=== PATIENT | male | born 1955 | race Caucasian/White ===

== ENCOUNTER 2019-02-22 09:42 | Outpatient (REF) | payer BC, SELFPAY ==
[2019-02-22 22:02] LABS: ALT 43 U/L (12-78); AST 42 U/L (15-37); Albumin 4.3 g/dL (3.4-5.0); Alkaline Phosphatase 56 U/L (46-116); Amylase 98 U/L (25-115); Anion Gap 8.6 mmol/L (3-11); BUN 12 mg/dL (7-18); Bilirubin, Total 0.8 mg/dL (0.2-1.0); CO2 29.4 mmol/L (21.0-32.0); CREATININE 0.76 mg/dL (0.70-1.30); Calcium 9.5 mg/dL (8.5-10.1); Chloride 101 mmol/L (98-107); Glucose 79 mg/dL (70-100); Lipase 81 U/L (73-393); Sodium 139 mmol/L (136-145)
[2019-02-22 22:05] LABS: HCT 43.8 % (40.0-50.0); HGB 14.6 g/dL (13.5-17.5); Mean Corp. HGB Concentration 33.3 g/dL (32.0-36.0); Mean Corpuscular Hemoglobin 30.5 pg (27.0-33.0); Mean Corpuscular Volume 91.4 fL (80-95); Mean Platelet Volume 9.7 fL (8.0-11.0); Platelet Count 220 x1000/uL (130-400); RBC 4.79 m/cumm (4.50-6.00); RBC Distribution Width 12.8 % (11.8-14.1); White Blood Cell Count 4.42 k/cumm (4.4-10.8)
[2019-02-22 22:26] LABS: Bilirubin Negative (Negative); Blood Negative (Negative); Clarity Clear; Glucose Negative (Negative); Ketones Negative (Negative); Leukocyte Esterase Negative (Negative); Nitrite Negative (Negative); Specific Gravity <= 1.005 (1.005-1.025); Urobilinogen 0.2 EU/dL (Up TO 0.2)
[2019-02-24 08:47] LABS: PSA, Screening 0.8 ng/ml (0-4.5)
== END 2019-02-22 10:02 ==
LOC: NCHCN 09:42
PROVIDERS: PCP Internal Medicine; Visit Provider Nurse Practitioner Family
DX: R10.11 Right upper quadrant pain (principal); Z12.5 Encounter for screening for malignant neoplasm of prostate; N40.0 Benign prostatic hyperplasia without lower urinary tract symptoms
CPT/HCPCS: 80053; 83690; 84153; 85027; 81003; 82150

== ENCOUNTER 2019-04-17 11:33 | Outpatient (REF) | payer BC, SELFPAY ==
[2019-04-20 14:18] LABS: Helicobacter pylori Ag, Feces Negative (NEGAT)
== END 2019-04-17 11:53 ==
LOC: NCHCN 11:33
PROVIDERS: PCP Internal Medicine; Visit Provider Internal Medicine
DX: R10.11 Right upper quadrant pain (principal)
CPT/HCPCS: 87338

== ENCOUNTER 2023-06-09 08:06 | Outpatient (REF) | payer MEDICARE, SELFPAY ==
[2023-06-10 10:15] LABS: HIV-1/2 Ag & Ab Screen Negative (Negative)
[2023-06-10 11:32] LABS: Syphilis Serology (RPR) Negative (Negative)
[2023-06-10 14:29] LABS: Chlamydia Result Negative (Negative); GC Result Negative (Negative)
== END 2023-06-09 08:07 | disposition home or self-care (01) ==
LOC: NCHCN 08:06
PROVIDERS: PCP Internal Medicine; Visit Provider Internal Medicine
DX: Z11.3 Encounter for screening for infections with a predominantly sexual mode of transmission (principal)
CPT/HCPCS: 87389; 87491; 87591; 86592

== ENCOUNTER 2023-08-09 15:28 | Outpatient (REF) | payer MEDICARE, SELFPAY ==
[2023-08-11 12:05] LABS: HIV-1/2 Ag & Ab Screen Negative (Negative)
== END 2023-08-09 15:29 | disposition home or self-care (01) ==
LOC: NCHCN 15:28
PROVIDERS: PCP Internal Medicine; Visit Provider Internal Medicine
DX: Z11.4 Encounter for screening for human immunodeficiency virus [HIV] (principal)
CPT/HCPCS: 87389

== ENCOUNTER 2023-10-27 16:17 | Outpatient (REF) | payer MEDICARE, SELFPAY ==
[2023-10-27 21:32] LABS: Abs Immature Grans 0.02 10^3/uL (0.0-0.06); Absolute Basophil Count 0.02 10^3/uL (0.0-0.2); Absolute Eosinophil Count 0.17 10^3/uL (0.0-0.7); Absolute Lymphocyte Count 1.07 10^3/uL (1.2-3.4); Absolute Monocyte Count 0.54 10^3/uL (0.1-0.8); Absolute Neutrophil Count 3.78 10^3/uL (1.2-6.7); Basophils % 0.4; HCT 43.3 % (40.0-50.0); HGB 14.7 g/dL (13.5-17.5); Immature Grans % 0.4; Lymphocytes % 19.1; MCH 31.1 pg (27.0-33.0); MCHC 33.9 % (32.0-36.0); MCV 92 fL (80-95); MPV 9.3 fL (8.0-11.0); Monocytes % 9.6; Neutrophils % 67.5; Platelet Count 223 10^3/uL (130-400); RBC 4.72 10^6/uL (4.36-5.78); RDW 12.8 % (11.8-14.1); RDW-SD 43.3 fL
[2023-10-27 22:24] LABS: ALT 36 U/L (16-63); AST 34 U/L (15-37); Alkaline Phosphatase 64 U/L (46-116); Anion Gap 6.5 mmol/L (3-11); BUN 20 mg/dL (7-18); Bilirubin, Total 0.4 mg/dL (0.2-1.0); CO2 30.5 mmol/L (21.0-32.0); CREATININE 0.8 mg/dL (0.70-1.30); Calcium 9.5 mg/dL (8.5-10.1); Chloride 102 mmol/L (98-107); Glucose 105 mg/dL (74-106); Potassium 4.3 mmol/L (3.5-5.1); Sodium 139 mmol/L (136-145); TSH (W/Ref FT4) 1.58 uIU/mL (0.36-3.74); Total Protein 7.4 g/dL (6.4-8.2); Vitamin B12 961 pg/mL (193-986)
== END 2023-10-27 16:18 | disposition home or self-care (01) ==
LOC: NCHCN 16:17
PROVIDERS: PCP Internal Medicine; Visit Provider Internal Medicine
DX: R42 Dizziness and giddiness (principal)
CPT/HCPCS: 80053; 82607; 84443; 85025

== ENCOUNTER 2024-01-07 15:23 | Outpatient (REF) | payer MEDICARE, SELFPAY ==
[2024-01-10 10:29] LABS: Syphilis Serology (RPR) Negative (Negative)
[2024-01-10 10:30] LABS: HIV-1/2 Ag & Ab Screen Negative (Negative)
[2024-01-10 10:35] LABS: Hepatitis C Ab w Rflx HCV PCR Negative (Negative)
[2024-01-10 10:38] LABS: Hep B Core Antibody Negative (Negative)
== END 2024-01-07 15:24 | disposition home or self-care (01) ==
LOC: NCHCN 15:23
PROVIDERS: PCP Internal Medicine; Visit Provider Internal Medicine
DX: Z11.3 Encounter for screening for infections with a predominantly sexual mode of transmission (principal); Z72.51 High risk heterosexual behavior
CPT/HCPCS: 86704; 86803; 87389; 86592

== ENCOUNTER 2024-11-09 08:20 | Outpatient (REF) | payer MEDICARE, SELFPAY ==
[2024-11-09 14:57] LABS: HCT 42.1 % (40.0-50.0); HGB 14.2 g/dL (13.5-17.5); MCH 30.9 pg (27.0-33.0); MCHC 33.7 % (32.0-36.0); MCV 92 fL (80-95); MPV 9.3 fL (8.0-11.0); Platelet Count 198 10^3/uL (130-400); RDW 12.8 % (11.8-14.1); RDW-SD 42.2 fL
[2024-11-09 15:10] LABS: Calculated LDL 74 mg/dL (<100); Cholesterol 165 mg/dL (<200); HDL Cholesterol 86 mg/dL (40-60); Triglyceride 26 mg/dL (<150)
== END 2024-11-09 08:21 | disposition home or self-care (01) ==
LOC: NCHCN 08:20
PROVIDERS: PCP Internal Medicine; Visit Provider Internal Medicine
DX: Z00.00 Encounter for general adult medical examination without abnormal findings (principal)
CPT/HCPCS: 80061; 84153; 85027

== ENCOUNTER 2025-03-26 13:55 | Outpatient (REF) | payer MEDICARE, SELFPAY ==
[2025-03-27 10:14] LABS: IgA 92 mg/dL (85-499); Interpretation (See Note); Tissue Transglutaminase IgA <4.0 CU (<20.0)
== END 2025-03-26 13:56 | disposition home or self-care (01) ==
LOC: NCHCN 13:55
PROVIDERS: PCP Internal Medicine; Visit Provider Internal Medicine
DX: R10.9 Unspecified abdominal pain (principal)
CPT/HCPCS: 82784; 83516

== ENCOUNTER 2025-03-27 15:34 | Outpatient (REF) | payer MEDICARE, SELFPAY ==
[2025-03-30 13:00] LABS: Helicobacter pylori Ag, Feces Negative (Negative)
== END 2025-03-27 15:35 | disposition home or self-care (01) ==
LOC: NCHCN 15:34
PROVIDERS: PCP Internal Medicine; Visit Provider Internal Medicine
DX: R10.9 Unspecified abdominal pain (principal)
CPT/HCPCS: 87338

== ENCOUNTER 2025-04-03 14:46 | Outpatient (REF) | payer MEDICARE, SELFPAY ==
[2025-04-03 16:13] LABS: Bacteria Negative HPF (Negative); C & S Indicated? No; Crystals Negative HPF (Negative); Epithelial Cells Negative HPF (Negative); Mucus Trace (Negative); WBC Negative HPF (0-5)
[2025-04-03 23:02] LABS: PSA, Screening 1.1 ng/mL (<=6.5)
== END 2025-04-03 14:47 | disposition home or self-care (01) ==
LOC: NCHCN 14:46
PROVIDERS: PCP Internal Medicine; Visit Provider Internal Medicine
DX: Z12.5 Encounter for screening for malignant neoplasm of prostate (principal); R39.9 Unspecified symptoms and signs involving the genitourinary system
CPT/HCPCS: 84153; 81015

== ENCOUNTER 2025-07-19 15:22 | Outpatient (REF) | payer MEDICARE, SELFPAY ==
[2025-07-19 20:46] LABS: Estimated GFR 91.88 (mL/min/1.73m2)
== END 2025-07-19 15:23 | disposition home or self-care (01) ==
LOC: LBN 15:22
PROVIDERS: PCP Internal Medicine; Visit Provider Urology
DX: D49.4 Neoplasm of unspecified behavior of bladder (principal)
CPT/HCPCS: 82565